=== PATIENT | female | born 1990 | race Two or more races ===

== ENCOUNTER 2025-01-02 13:00 | Outpatient (AMB) | payer MEDICAID, SELFPAY ==
[2025-01-02 13:20] VITALS: BP 107/64; PULSE 81; RESP 16; TEMP 36.6; O2SAT 98; BMI 36.6
--- NOTE | 2025-01-02 13:20 | AMB.OBINITIA ---
Vital Signs 01/02/25 13:20 Height 1.55 m Height Method Stated Weight 87.997 kg Weight Measurement Method Standing Scale BMI 36.6 BP 107/64 Blood Pressure Source Automatic Cuff Blood Pressure Location Left Upper Arm Position Sitting Respiration 16 Pulse 81 Pulse Source Monitor Temp 97.9 F Temp Source Oral Pulse Oximetry (%) 98 Oxygen Delivery Method Room Air Allergies/Home Meds Allergies & Medications Allergies No Known Drug Allergies Allergy (Unknown, Verified 11/23/21 01:20) Medication Reconciliation No Known Home Medications 01/02/25 [History Confirmed 01/02/25] Intake Visit Data Collection New Patient or Established: Established Patient (seen at [facility] within 3 years) Reason for Visit:: CARE Seen by Clinical Staff ONLY (RN/MA): No Caregiver Assisted Living Required: No Do You Feel Safe at Home: Yes Authorities Contacted: N/A PCP or OBGYN visit in last 3 months: Yes Hx Now: Yes Are you currently on any form of Control: No Last menstrual period: 06/11/24 Pain Present Currently: No Pain Scale Used: Vazquez-Kathleen/Numerical Pain scale:: 0 Smoking Status Smoking Status: 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 Questionnaires Covid-19 Vaccine Questionnaire Has patient been vacinated for Covid-19 Have you been vacinated for Covid-19: Yes PHQ-9 PHQ-2 Over the last 2 weeks, how often have you been bothered by any of the following problems? 1. Little interest or pleasure in doing things: not at all 2. Feeling down, depressed, or hopeless: not at all Total score: 0 PHQ-9 3. Trouble falling or staying asleep, or sleeping too much: Not at all 4. Feeling tired or having little energy: Not at all 5. Poor appetite or overeating: Not at all 6. Feeling bad about yourself - or that you are a failure or have let yourself or your family down: Not at all 7. Trouble concentrating on things, such as reading the newspaper or watching television: Not at all 8. Moving or speaking so slowly that other people could have noticed? - Or the opposite - being so fidgety or restless that you have been moving around a lot more than usual: not at all 9. Thoughts that you would be better off or of hurting yourself in some way: Not at all Total score: 0 Source: Developed by Drs. Sarmad Pandey, Nora Ding, Leo Wynn and colleagues, with an educational kentrell from [employer]. Depression screen completed yes Social History Living Situation History Marital Status: Lives With: Family Housing: House Tobacco History Smoking Status: 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 Second Hand Smoke Exposure: No Alcohol History Alcohol Intake: Never Domestic Abuse History Do You Feel Safe at Home: Yes Past Medical History Past Medical History Have you ever been diagnosed with any of the following: Neurological Problems Cerebrovascular Accident (CVA): No Transient Ischemic Attacks (TIA): No Dementia: No Alzheimer's Disease: No Seizures: No Migraine: Yes (has taken medication, no current rx) Cardiology Problems Myocardial Infarction: No Cardiac Arrhythmia: No Atrial Fibrillation: No Angina: No Heart Murmur: No Coronary Artery Disease: No Atherosclerotic Heart Disease: No Peripheral Vascular Disease: No Congestive Heart Failure: No Respiratory Problems Chronic Obstructive Pulmonary Disease (COPD): No Asthma: No (SON) Hx Cough: No Cough: No Wheezing: No Chest Deformities: No Smoking: No Stomache/Intestinal Problems Liver Cancer: No Hepatitis: No Cirrhosis: No Diverticulitis: No Diverticulosis: No Ulcer: No Genital/Urinary Problems Renal Disease: No Reproductive Problems Previous Pregnancies: Yes Musculoskeletal Problems Scoliosis: Yes Endocrine Problems Diabetes Mellitus Type 1: No Diabetes Mellitus Type 2: No Blood Problems Anemia: No Leukemia: No Hemophilia: No Thalassemia: No Other Problems Hospitalization: No Shingles: No Falls: No Blood Transfusions: No Blood Transfusion Reaction: No Anesthesia Reactions: No MRSA: No Measles: Yes Cancer: No History of Present Illness HPI Narrative This is a 34-year-old 4 para 3 that comes to OB clinic for her first visit. Patient is a transfer from [facility]. First visit at [facility] was at 8 weeks. First OB sono was at 13 weeks. Last period June 11, 2024. This gives EDC of 03/18/2025. Patient is A+, antibody screen negative, RPR nonreactive, rubella immune, hepatitis B negative, HIV negative, hep C negative, GC and Chlamydia were negative. Patient's NIPT was negative. AFP and screens were negative. Patient had her 1 hour Glucola done and that was 139. And hemoglobin A1c was 5.4. Hematocrit normal range. Patient's next OB sono with maternal- medicine is January 16. Patient reports movement. Denies signs and symptoms of labor. No OB complaints today. OB Initial Visit Menstrual History Menstrual reliability: definite Flow: normal Menstrual regularity: regular Monthly: Yes Age at menarche: 11 On control pills at conception: No OB History : 4 Para: 3 Hx # Pregnancies: 0 Hx Total # of Abortions (Spontaneous & Elective): 0 # of Living Children: 3 Delivery History 1st : Child's name: MARLI date: 05/01/10 sex: female Gestational age at delivery (weeks): 39 Delivery type: vaginal Delivery complications: NONE History of depression before or after : No 2nd : Child's name: MONIKA date: 11/25/12 sex: male Gestational age at delivery (weeks): 39 Delivery type: vaginal Delivery complications: NONE History of depression before or after : No 3rd : Child's name: RADHA date: 08/25/15 sex: male Gestational age at delivery (weeks): 40 Delivery type: vaginal Delivery complications: NONE History of depression before or after : No Infection History & Risk Evaluation History of STDs: chlamydia HIV risk evaluation: low risk Hepatitis B risk evaluation: low risk Patient or partner has history of Genital Herpes: No Genetic Screening & History Genetic Screening/Teratology Counseling - Includes patient, baby's father, or anyone in either family with: 1. Patient's age 35 years or older as of estimated date of delivery: Yes 2. Thalassemia (Macedonian, Cook Islander, Mediterranean, or Background); MCV less than 80: No 3. Neural Tube Defect (Meningomyelocele, Spina Bifida, or Anencephaly): No 4. Congenital Heart Defect: No 5. Down Syndrome: No 6. Saleem-Sachs (Ashkenazi Adventism, Cajun, Czech Barron): No 7. Milagros Disease (Ashkenazi Adventism): No 8. Familial Dysautonomia (Ashkenazi Adventism): No 9. Sickle Cell Disease or Trait (): No 10. Hemophilia or other blood disorders: No 11. Muscular Dystrophy: No 12. Cystic Fibrosis: No 13. [place]'s Chorea: No 14. Mental Retardation/Autism: No 15. Other inherited genetic or chromosomal disorder: No 16. Maternal Metabolic Disorder (EG,TYPE 1 Diabetes, PKU): No 17. Patient or baby's father had a child with defects not listed above: No 18. Recurrent loss or a stillbirth: No 19. Medications (including supplements, vitamins, herbs or otc drugs)/illicit/recreational drugs/alcohol since last menstrual period: Yes If Yes, agent(s) and strength/dosage: prenatals 1 daily 20. Any other: No Infection History 1. Live with someone with TB or exposed to TB: No 2. Rash or viral illness since last menstrual period: No 3. Hepatitis B,C: No 4. History of STD: chlamydia Other (see comments) Source: [employer] OB Flowsheet OB Flowsheet Initial Weight: Not Recorded Date <del>?</del> EGA Weight Edema CTX Effacement BP Fundal ht Pres Dilation Effacement Station Visit Note Alb Glu FHR Mov 01/02/25 <del>?</del> 29w 2d 87.997 kg absent absent 107/64 29 34-year-old multipara for OB check and OB transfer of care. Patient reports good movement. Denies cramping or signs of labor. Follow-up maternal- medicine is January 16, 2025. Tdap vaccine IM will be given today. And follow-up in 3 weeks. 135 active Review of Systems Review of Systems Systems Reviewed: All systems reviewed, normal except as documented Exam General Limitations: no limitations General Appearance: alert, in no apparent distress, comfortable, cooperative, healthy appearing, well developed and well groomed Head Head exam: atraumatic, normocephalic and normal inspection Neck Neck exam: Present normal inspection, full ROM and trachea midline Chest Chest inspection: Present normal inspection and symmetric chest wall rise Resp Respiratory exam: Present normal lung sounds bilaterally Card Cardiovascular exam: Present regular rate, normal rhythm and normal heart sounds Abdominal Abdominal exam: Present soft (gravid abdomen, FH: 29. FHT 134) and normal bowel sounds Psych Psychiatric exam: Present normal affect and normal mood Results Objective Laboratory: HA1c:5.4 1hr gtt:134 rpr: NR HCT: 35/11.4 platelets:302 Assessment & Plan Diagnosis / Problem List (1) Supervision of elderly multigravida, third trimester: Status: Acute (2) Encounter for supervision of other normal , third trimester: Status: Acute Plan TDAP today, f/u with mfm as scheduled 01/16, PTL precaution reviewed, continue PNV, increase fluid, comfort measure for swelling, avoid excess salt. f/u 3 week Additional Plan Follow Up: 3 Weeks Office Procedures OB Clinic LOC & Office Proc's Nursing/Assessment Patient Status: Established Patient OB Clinic Nursing Assessment: Medication Reconciliation, Update PMH in EMR and Vital Signs OB Clinic Coordination of Care: Complex Care and Chronic Disease 1-5, Consent,records obtained, informed consent, Education Simp Pt/Fam, Results/Orders obtained and Staff clarify orders Special Needs: Heart tones Established Patient Charge Established Patient Point Assignment: 120 Established Patient Point Charge: EP Level 4 (120-155) Injection/Vaccine Admin SQ Im Injection: Yes Immunizations Adacel(Tdap Adolesn/Adult)(PF) 2 Lf-(2.5-5-3-5)-5 Lf/0.5 mL IM syringe Performing Provider: Jackeline Winston CNM Performing Location: [facility] Administered by: Melania Linton MA on 01/02/25 13:45 Dose Route Admin Location Dispensed Lot Number Expiration Date [facility] 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
== END 2025-01-02 13:54 | disposition home or self-care (01) ==
LOC: HODSOBC 13:00
PROVIDERS: PCP Advanced Practice Midwife; Referring Provider Advanced Practice Midwife; Supervising Provider Advanced Practice Midwife; Visit Provider Advanced Practice Midwife
DX: O09.523 Supervision of elderly multigravida, third trimester (principal); Z3A.29 29 weeks gestation of pregnancy; Z23 Encounter for immunization
CPT/HCPCS: 90471; 90715; 96372; 99214; G0463

== ENCOUNTER 2025-02-06 09:05 | Outpatient (AMB) | payer MEDICAID, SELFPAY ==
--- NOTE | 2025-02-06 09:09 | OBCLNT_ITS ---
Vital Signs 02/06/25 09:17 Height 1.55 m Height Method Stated Weight 86.409 kg Weight Measurement Method Standing Scale BMI 35.9 BP 107/66 Blood Pressure Source Automatic Cuff Blood Pressure Location Right Upper Arm Position Sitting Respiration 14 Pulse 70 Pulse Source Monitor Temp 97.7 F Temp Source Oral Pulse Oximetry (%) 98 Oxygen Delivery Method Room Air Allergies/Home Meds Allergies & Medications Allergies No Known Drug Allergies Allergy (Unknown, Verified 02/06/25 09:18) Medication Reconciliation No Known Home Medications 01/02/25 [History Confirmed 02/06/25] Intake Visit Data Collection New Patient or Established: Established Patient (seen at [facility] within 3 years) Reason for Visit:: CARE Seen by Clinical Staff ONLY (RN/MA): No Animal Eviscerator Required: No Do You Feel Safe at Home: Yes Authorities Contacted: N/A PCP or OBGYN visit in last 3 months: Yes Hx Now: Yes Are you currently on any form of Control: No Pain Present Currently: No Pain Scale Used: Vazquez-Kathleen/Numerical Pain scale:: 0 Smoking Status Smoking Status: 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 Questionnaires Covid-19 Vaccine Questionnaire Has patient been vacinated for Covid-19 Have you been vacinated for Covid-19: Yes PHQ-9 PHQ-2 Over the last 2 weeks, how often have you been bothered by any of the following problems? 1. Little interest or pleasure in doing things: not at all 2. Feeling down, depressed, or hopeless: not at all Total score: 0 PHQ-9 3. Trouble falling or staying asleep, or sleeping too much: Not at all 4. Feeling tired or having little energy: Not at all 5. Poor appetite or overeating: Not at all 6. Feeling bad about yourself - or that you are a failure or have let yourself or your family down: Not at all 7. Trouble concentrating on things, such as reading the newspaper or watching t elevision: Not at all 8. Moving or speaking so slowly that other people could have noticed? - Or the opposite - being so fidgety or restless that you have been moving around a lot more than usual: not at all 9. Thoughts that you would be better off or of hurting yourself in some way: Not at all Total score: 0 Source: Developed by Drs. Sarmad Pandey, Nora Ding, Leo Wynn and colleagues, with an educational kentrell from [employer]. 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: Past Medical History Past Medical History: Yes Hx Neurological Disorders, No Hx Cardiac Disorders, No Hx Cancer, No Hx Blood Disorders, No Hx Anemia, No Hx Gastrointestinal Disorders, No Hx Renal Disease, No Hx Diabetes Mellitus Type 1 and No Hx Diabetes Mellitus Type 2 Care OB Visit Log OB Flowsheet Initial Weight: Not Recorded Date -?-?-?-?-?-?-?-?-?-?-?-?- EGA Weight Edema CTX Effacement BP Fundal ht Pres Dilation Effacement Station Visit Note Alb Glu FHR Mov 01/02/25 -?-?-?-?-?-?-?-?-?-?-?-?- 29w 2d 87.997 kg absent absent 107/64 29 34-year-old multipara for OB check and OB transfer of care. Patient reports good movement. Denies cramping or signs of labor. Follow-up maternal- medicine is January 16, 2025. Tdap vaccine IM will be given today. And follow-up in 3 weeks. 135 active 02/06/25 -?-?-?-?-?-?-?-?-?-?-?-?- 34w 2d 86.409 kg absent absent 107/66 34 cephalic fetus active. complains of sciatic pain and leg cramps, feactive,no PTL complaints. comfort measure for leg cramps and sciatic pain, continue PNV, fkc bid, GBS NV. RTC 1 week 143 active ROX Calculator Estimated Delivery Date Method Current WG Current Estimate 03/18/25 LMP (Certain) 34w 2d Other Estimates 03/23/25 Ultrasound #1 33w 4d Notes Visit Date: 02/06/25 Last Updated by: Jackeline Winston CNM 34 yo , lmp 06/11/24. EDC 03/18/25. A+,abs-,rpr;;nr, rub imm, hbsag-,hiv-,GC/CT-, A1c:5.4, 1 hr gtt wnl. EFX+W 71%, biggest babe:9lb Office Procedures OB Clinic LOC & Office Proc's Nursing/Assessment Patient Status: Established Patient OB Clinic Nursing Assessment: Medication Reconciliation, Update PMH in EMR and Vital Signs OB Clinic Coordination of Care: AMA, Complex Care and Chronic Disease 1-5, Consent,records obtained, informed consent, Education Simp Pt/Fam, Lab and Imaging orders, Results/Orders obtained and [facility] Special Needs: Heart tones Miscellaneous Interventions: Blood/Urine Collection Established Patient Charge Established Patient Point Assignment: 185 Established Patient Point Charge: EP Level 5 (160-above) Assessment & Plan Diagnosis / Problem List (1) Encounter for supervision of other normal , third trimester: Status: Acute Plan PTL precaution, fkc bid, continue pnf, discuss diet and weight, comfort measure for sciatic and leg cramps. RTC 1 week, gbs Additional Plan Follow Up: 1 Week (obc)
[2025-02-06 09:17] VITALS: BP 107/66; PULSE 70; RESP 14; TEMP 36.5; O2SAT 98; BMI 35.9
[2025-02-06 11:27] LABS: Bilirubin,Urine Clinitek Negative (Negative); Blood,Urine Clinitek Negative (Negative); Glucose, Urine Clinitek Negative (Negative); Ketones,Urine Clinitek Negative (Negative); Leukocyte Esterase,Urine Clin Negative (Negative); Nitrite,Urine Clinitek Negative (Negative); PH,Urine Clinitek 6.5 (5.0-7.0); Protein,Urine Clinitek 1+ (Neg - Trace); Specific Gravity,Urine Clin 1.025 (1.001-1.030); Urobilinogen,Urine Clinitek 0.2 mg/dL (0.0-1.0)
== END 2025-02-06 10:01 | disposition home or self-care (01) ==
LOC: HODSOBC 09:05
PROVIDERS: Supervising Provider Advanced Practice Midwife; Visit Provider Advanced Practice Midwife
DX: O09.523 Supervision of elderly multigravida, third trimester (principal); O09.893 Supervision of other high risk pregnancies, third trimester; Z3A.34 34 weeks gestation of pregnancy; M54.30 Sciatica, unspecified side; O99.891 Other specified diseases and conditions complicating pregnancy
CPT/HCPCS: 81001; 99215; G0463

== ENCOUNTER 2025-02-13 08:37 | Outpatient (AMB) | payer MEDICAID, SELFPAY ==
[2025-02-13 08:39] VITALS: BP 116/70; PULSE 90; RESP 18; TEMP 36.3; O2SAT 97; BMI 36.8
--- NOTE | 2025-02-13 08:39 | OBCLNT_ITS ---
Vital Signs 02/13/25 08:39 Height 1.55 m Height Method Stated Weight 88.621 kg Weight Measurement Method Standing Scale BMI 36.8 BP 116/70 Blood Pressure Source Automatic Cuff Blood Pressure Location Right Upper Arm Position Sitting Respiration 18 Pulse 90 Pulse Source Monitor Temp 97.4 F Temp Source Oral Pulse Oximetry (%) 97 Oxygen Delivery Method Room Air Allergies/Home Meds Allergies & Medications Allergies No Known Drug Allergies Allergy (Unknown, Verified 02/13/25 08:40) Medication Reconciliation No Known Home Medications 01/02/25 [History Confirmed 02/13/25] Intake Visit Data Collection New Patient or Established: Established Patient (seen at [facility] within 3 years) Reason for Visit:: CARE Seen by Clinical Staff ONLY (RN/MA): No Combustion Engineer Required: No Do You Feel Safe at Home: Yes Authorities Contacted: N/A PCP or OBGYN visit in last 3 months: Yes Hx Now: Yes Are you currently on any form of Control: No Pain Present Currently: No Pain Scale Used: Vazquez-Kathleen/Numerical Pain scale:: 0 Smoking Status Smoking Status: 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 Questionnaires Covid-19 Vaccine Questionnaire Has patient been vacinated for Covid-19 Have you been vacinated for Covid-19: No PHQ-9 PHQ-2 Over the last 2 weeks, how often have you been bothered by any of the following problems? 1. Little interest or pleasure in doing things: not at all 2. Feeling down, depressed, or hopeless: not at all Total score: 0 PHQ-9 3. Trouble falling or staying asleep, or sleeping too much: Not at all 4. Feeling tired or having little energy: Not at all 5. Poor appetite or overeating: Not at all 6. Feeling bad about yourself - or that you are a failure or have let yourself or your family down: Not at all 7. Trouble concentrating on things, such as reading the newspaper or watching te levision: Not at all 8. Moving or speaking so slowly that other people could have noticed? - Or the opposite - being so fidgety or restless that you have been moving around a lot more than usual: not at all 9. Thoughts that you would be better off or of hurting yourself in some way: Not at all Total score: 0 Source: Developed by Drs. Sarmad Pandey, Nora Ding, Leo Wynn and colleagues, with an educational kentrell from [employer]. 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 Patient reports good movement. Denies cramping or signs of labor. Follow-up maternal- medicine is January 16, 2025. Tdap vaccine IM will be given today. And follow-up in 3 weeks. 135 active 02/06/25 -?-?-?-?-?-?-?-?-?-?-?-?- 34w 2d 86.409 kg absent absent 107/66 34 cephalic fetus active. complains of sciatic pain and leg cramps, feactive,no PTL complaints. comfort measure for leg cramps and sciatic pain, continue PNV, fkc bid, GBS NV. RTC 1 week 143 active 02/13/25 -?-?-?-?-?-?-?-?-?-?-?-?- 35w 2d 88.621 kg absent absent 116/70 cephalic fetus active, no complaints of labor. denies leaking or bleeding, fetus active, discuss FKC, review laror precaution, GBS today. rtc 1 week 156 active ROX Calculator Estimated Delivery Date Method Current WG Current Estimate 03/18/25 LMP (Certain) 35w 2d Other Estimates 03/23/25 Ultrasound #1 34w 4d Notes Visit Date: 02/06/25 Last Updated by: Jackeline Winston CNM 34 yo , lmp 06/11/24. EDC 03/18/25. A+,abs-,rpr;;nr, rub imm, hbsag-,hiv-,GC/CT-, A1c:5.4, 1 hr gtt wnl. EFX+W 71%, biggest babe:9lb Office Procedures OB Clinic LOC & Office Proc's Nursing/Assessment Patient Status: Established Patient OB Clinic Nursing Assessment: Medication Reconciliation, Update PMH in EMR and Vital Signs OB Clinic Coordination of Care: Complex Care and Chronic Disease 1-5, Consent,records obtained, informed consent, Education Simp Pt/Fam, Lab and Imaging orders, Results/Orders obtained and Staff clarify orders Special Needs: Heart tones Established Patient Charge Established Patient Point Assignment: 135 Established Patient Point Charge: EP Level 4 (120-155) Assessment & Plan Diagnosis / Problem List (1) Encounter for supervision of other normal , third trimester: Status: Acute Plan GBS today, discuss labor precaution, fkc bid, continue PNV, increase fluids. RTC 1 week obc Additional Plan Follow Up: 1 Week (obc)
== END 2025-02-13 09:02 | disposition home or self-care (01) ==
LOC: HODSOBC 08:37
PROVIDERS: PCP Advanced Practice Midwife; Referring Provider Advanced Practice Midwife; Supervising Provider Advanced Practice Midwife; Visit Provider Advanced Practice Midwife
DX: O09.523 Supervision of elderly multigravida, third trimester (principal); Z3A.35 35 weeks gestation of pregnancy
CPT/HCPCS: 81001; 99214; G0463

== ENCOUNTER 2025-02-20 08:20 | Outpatient (AMB) | payer MEDICAID, SELFPAY ==
[2025-02-20 08:27] VITALS: BP 106/70; PULSE 80; RESP 15; TEMP 36.3; O2SAT 98; BMI 37.0
--- NOTE | 2025-02-20 08:27 | OBCLNT_ITS ---
Vital Signs 02/20/25 08:27 Height 1.55 m Height Method Stated Weight 89.074 kg Weight Measurement Method Standing Scale BMI 37.0 BP 106/70 Blood Pressure Source Automatic Cuff Blood Pressure Location Left Upper Arm Position Sitting Respiration 15 Pulse 80 Pulse Source Monitor Temp 97.4 F Temp Source Oral Pulse Oximetry (%) 98 Oxygen Delivery Method Room Air Allergies/Home Meds Allergies & Medications Allergies No Known Drug Allergies Allergy (Unknown, Verified 02/20/25 08:28) Medication Reconciliation No Known Home Medications 01/02/25 [History Confirmed 02/20/25] Intake Visit Data Collection New Patient or Established: Established Patient (seen at [facility] within 3 years) Reason for Visit:: PREATAL CARE Seen by Clinical Staff ONLY (RN/MA): No Yard Engineer Required: No Do You Feel Safe at Home: Yes Authorities Contacted: N/A PCP or OBGYN visit in last 3 months: Yes Hx Now: Yes Are you currently on any form of Control: No Pain Present Currently: No Pain Scale Used: Vazquez-Kathleen/Numerical Pain scale:: 0 Smoking Status Smoking Status: 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 Questionnaires Covid-19 Vaccine Questionnaire Has patient been vacinated for Covid-19 Have you been vacinated for Covid-19: Yes PHQ-9 PHQ-2 Over the last 2 weeks, how often have you been bothered by any of the following problems? 1. Little interest or pleasure in doing things: not at all 2. Feeling down, depressed, or hopeless: not at all Total score: 0 PHQ-9 3. Trouble falling or staying asleep, or sleeping too much: Not at all 4. Feeling tired or having little energy: Not at all 5. Poor appetite or overeating: Not at all 6. Feeling bad about yourself - or that you are a failure or have let yourself or your family down: Not at all 7. Trouble concentrating on things, such as reading the newspaper or watching television: Not at all 8. Moving or speaking so slowly that other people could have noticed? - Or the opposite - being so fidgety or restless that you have been moving around a lot more than usual: not at all 9. Thoughts that you would be better off or of hurting yourself in some way: Not at all Total score: 0 Source: Developed by Drs. Sarmad Pandey, Nora Ding, Leo Wynn and colleagues, with an educational kentrell from [employer]. 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 Patient reports good movement. Denies cramping or signs of labor. Follow-up maternal- medicine is January 16, 2025. Tdap vaccine IM will be given today. And follow-up in 3 weeks. 02/06/25 -?-?-?-?-?-?-?-?-?-?-?-?- 34w 2d 86.409 kg 107/66 absent cephalic 34 143 active fetus active. complains of sciatic pain and leg cramps, feactive,no PTL complaints. comfort measure for leg cramps and sciatic pain, continue PNV, fkc bid, GBS NV. RTC 1 week 02/13/25 -?-?-?-?-?-?-?-?-?-?-?-?- 35w 2d 88.621 kg 116/70 absent cephalic 156 active fetus active, no complaints of labor. denies leaking or bleeding, fetus active, discuss FKC, review laror precaution, GBS today. rtc 1 week 02/20/25 -?-?-?-?-?-?-?-?-?-?-?-?- 36w 2d 89.074 kg 106/70 occasional cephalic 36 157 active denies leaking,bleeding. reports good FM fetus active, labor precaution, fkc bid. hydrate, rtc 1 week ROX Calculator Estimated Delivery Date Method Current WG Current Estimate 03/18/25 LMP (Certain) 36w 2d Other Estimates 03/23/25 Ultrasound #1 35w 4d Notes Visit Date: 02/06/25 Last Updated by: Jackeline Winston, DORIE 34 yo , lmp 06/11/24. EDC 03/18/25. A+,abs-,rpr;;nr, rub imm, hbsag-,hiv-,GC/CT-, A1c:5.4, 1 hr gtt wnl. EFX+W 71%, biggest babe:9lb Office Procedures OB Clinic LOC & Office Proc's Nursing/Assessment Patient Status: Established Patient OB Clinic Nursing Assessment: Medication Reconciliation, Update PMH in EMR and Vital Signs OB Clinic Coordination of Care: Complex Care and Chronic Disease 1-5, Cons ent,records obtained, informed consent, Education Simp Pt/Fam, Lab and Imaging orders and Staff clarify orders Special Needs: Heart tones Established Patient Charge Established Patient Point Assignment: 130 Established Patient Point Charge: EP Level 4 (120-155) Assessment & Plan Diagnosis / Problem List (1) Supervision of elderly multigravida, third trimester: Status: Acute Plan discuss labor precaution, fkc bid. increase fluid. discuss danger s/s and ER precaution. rtc 1 week Additional Plan Follow Up: 1 Week (obc)
== END 2025-02-20 08:58 | disposition home or self-care (01) ==
LOC: HODSOBC 08:20
PROVIDERS: Supervising Provider Advanced Practice Midwife; Visit Provider Advanced Practice Midwife
DX: O09.523 Supervision of elderly multigravida, third trimester (principal); Z3A.36 36 weeks gestation of pregnancy
CPT/HCPCS: 99214; G0463

== ENCOUNTER 2025-02-27 09:00 | Outpatient (AMB) | payer MEDICAID, SELFPAY ==
[2025-02-27 09:29] VITALS: BP 116/69; PULSE 82; RESP 18; TEMP 36.2; O2SAT 99; BMI 37.6
--- NOTE | 2025-02-27 09:29 | OBCLNT_ITS ---
Vital Signs 02/27/25 09:29 Height 1.55 m Height Method Stated Weight 90.378 kg Weight Measurement Method Standing Scale BMI 37.6 BP 116/69 Blood Pressure Source Automatic Cuff Blood Pressure Location Left Upper Arm Position Sitting Respiration 18 Pulse 82 Pulse Source Monitor Temp 97.2 F Temp Source Oral Pulse Oximetry (%) 99 Oxygen Delivery Method Room Air Allergies/Home Meds Allergies & Medications Allergies No Known Drug Allergies Allergy (Unknown, Verified 02/20/25 08:28) Medication Reconciliation No Known Home Medications 01/02/25 [History Confirmed 02/27/25] Intake Visit Data Collection New Patient or Established: Established Patient (seen at [facility] within 3 years) Reason for Visit:: OBC Seen by Clinical Staff ONLY (RN/MA): No Domestic Cleaner Required: No Do You Feel Safe at Home: Yes Authorities Contacted: N/A PCP or OBGYN visit in last 3 months: Yes Date of Last PCP or OBGYN visit: 02/20/25 Hx Now: Yes Are you currently on any form of Control: No Pain Present Currently: No Pain Scale Used: Vazquez-Kathleen/Numerical Pain scale:: 0 Smoking Status Smoking Status: 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 Questionnaires Covid-19 Vaccine Questionnaire Has patient been vacinated for Covid-19 Have you been vacinated for Covid-19: Yes PHQ-9 PHQ-2 Over the last 2 weeks, how often have you been bothered by any of the following problems? 1. Little interest or pleasure in doing things: not at all 2. Feeling down, depressed, or hopeless: not at all Total score: 0 PHQ-9 3. Trouble falling or staying asleep, or sleeping too much: Not at all 4. Feeling tired or having little energy: Not at all 5. Poor appetite or overeating: Not at all 6. Feeling bad about yourself - or that you are a failure or have let yourself or your family down: Not at all 7. Trouble concentrating on things, such as reading the newspaper or watching television: Not at all 8. Moving or speaking so slowly that other people could have noticed? - Or the opposite - being so fidgety or restless that you have been moving around a lot more than usual: not at all 9. Thoughts that you would be better off or of hurting yourself in some way: Not at all Total score: 0 If you checked off any problems, how difficult have these problems made it for you to do your work, take care of things at home, or get along with other people?: not difficult at all Source: Developed by Drs. Sarmad Pandey, Nora Ding, Leo Wynn and colleagues, with an educational kentrell from [employer]. 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 Patient reports good movement. Denies cramping or signs of labor. Follow-up maternal- medicine is January 16, 2025. Tdap vaccine IM will be given today. And follow-up in 3 weeks. 02/06/25 -?-?-?-?-?-?-?-?-?-?-?-?- 34w 2d 86.409 kg 107/66 absent cephalic 34 143 active fetus active. complains of sciatic pain and leg cramps, feactive,no PTL complaints. comfort measure for leg cramps and sciatic pain, continue PNV, fkc bid, GBS NV. RTC 1 week 02/13/25 -?-?-?-?-?-?-?-?-?-?-?-?- 35w 2d 88.621 kg 116/70 absent cephalic 156 active fetus active, no complaints of labor. denies leaking or bleeding, fetus active, discuss FKC, review laror precaution, GBS today. rtc 1 week 02/20/25 -?-?-?-?-?-?-?-?-?-?-?-?- 36w 2d 89.074 kg 106/70 occasional cephalic 36 157 active denies leaking,bleeding. reports good FM fetus active, labor precaution, fkc bid. hydrate, rtc 1 week 02/27/25 -?-?-?-?-?-?-?-?-?-?-?-?- 37w 2d 90.378 kg 116/69 occasional cephalic 37 156 active fetus active. increased pressure, no LOF or bleeding, no other complaints discuss labor precaution, reviewed FKC bid, discuss danger precaution, continue PNV, Hydrate. rtc 1 week obc ROX Calculator Estimated Delivery Date Method Current WG Current Estimate 03/18/25 LMP (Certain) 37w 2d Other Estimates 03/23/25 Ultrasound #1 36w 4d Notes Visit Date: 02/27/25 Last Updated by: Jackeline Winston CNM GBS- Visit Date: 02/06/25 Last Updated by: Jackeline Winston CNM 34 yo , lmp 06/11/24. EDC 03/18/25. A+,abs-,rpr;;nr, rub imm, hbsag-,hiv-,GC/CT-, A1c:5.4, 1 hr gtt wnl. EFX+W 71%, biggest babe:9lb Office Procedures OB Clinic LOC & Office Proc's Nursing/Assessment Patient Status: Established Patient OB Clinic Nursing Assessment: Medication Reconciliation, Update PMH in EMR and Vital Signs OB Clinic Coordination of Care: Education Complex Pt/Fam, Consent,records obtained, informed consent, Lab and Imaging orders, Results/Orders obtained and Staff clarify orders Special Needs: Heart tones Established Patient Charge Established Patient Point Assignment: 115 Established Patient Point Charge: EP Level 3 (80-115) Assessment & Plan Diagnosis / Problem List (1) Encounter for supervision of other normal , third trimester: Status: Acute (2) Supervision of elderly multigravida, third trimester: Status: Acute Plan discuss labor precaution, fkc bid reviewed, discuss ER precaution. continue pnv, hydrate. rtc 1 week Additional Plan Follow Up: 1 Week (obc)
== END 2025-02-27 09:49 | disposition home or self-care (01) ==
LOC: HODSOBC 09:00
PROVIDERS: Supervising Provider Obstetrics & Gynecology; Visit Provider Advanced Practice Midwife
DX: O09.523 Supervision of elderly multigravida, third trimester (principal); Z3A.37 37 weeks gestation of pregnancy
CPT/HCPCS: 99213; G0463

== ENCOUNTER 2025-03-07 00:09 | Inpatient (IN) | payer MEDICAID, SELFPAY ==
[2025-03-07] VITALS (143 sets, daily range): BP systolic 102–168; BP diastolic 51–80; PULSE 66–104; RESP 14–99; TEMP 36.5–37.7; O2SAT 92–100; BMI 36.3
[2025-03-07] MEDS: RINGERS LACTATED 1000 ML 1,000 ML 999 ML IV (01:02)
[2025-03-07 01:11] LABS: Basophils # (Auto) 0.1 Thou/mm3 (0.0-0.2); Basophils % (Auto) 1 % (0-2.5); Eosinophils # (Auto) 0.2 Thou/mm3 (0.0-0.5); Eosinophils % (Auto) 2 % (0-10); Hematocrit 34.4 % (36.0-46.0); Immature Granulocytes % (Auto) 1 % (0-0); Immature Granulocytes Auto 0.05 Thou/mm3 (0.00-0.00); Lymphocytes # (Auto) 2.4 Thou/mm3 (1.0-4.8); Lymphocytes % (Auto) 24 % (10-50); Mean Corpuscular HGB Conc 34.9 g/dl (31.0-37.0); Mean Corpuscular Hemoglobin 28.9 pg (25.0-35.0); Mean Corpuscular Volume 83 fL (80-100); Monocytes # (Auto) 0.7 Thou/mm3 (0.0-0.8); Monocytes % (Auto) 7 % (0-12); Neutrophils # (Auto) 6.4 Thou/mm3 (1.8-7.7); Neutrophils % (Auto) 66 % (37-80); Nucleated Red Blood Cell % 0 /100 WBC (0); Platelet Count 248 Thou/mm3 (140-440); Red Blood Count 4.15 Miln/mm3 (4.00-5.20); White Blood Count 9.8 Thou/mm3 (3.6-11.0)
[2025-03-07] MEDS: OXYTOCIN INJ 10 UNIT/ML VIAL IM (07:11)
[2025-03-07] MEDS: OXYTOCIN in NS 20 units 20 UNIT/1,000 ML BAG 125 UNIT IV (07:16)
[2025-03-07] MEDS: MISOPROSTOL 200 mCg TABLET 800 MCG PR (07:16)
[2025-03-07] MEDS: TRANEXAMIC ACID 1,000 MG IVPB 1,000 MG/100 ML BAG 200 MG IV (07:36)
--- NOTE | 2025-03-07 07:54 | ESHP_ITS ---
Documentation for date of: 03/07/25 OB Labor/Induct. HPI History of Present Illness Chief complaint: labor : 4 Para: 3 Term pregnancies: 3 pregnancies: 0 Living children: 3 History of Abortions: Spontaneous and Elective: 0 History of Vaginal deliveries: 3 History of sections: No History of : No Date of last menstrual period: 06/11/24 ROX: 03/18/25 Gestational Age (weeks): 38 Gestational Age (days): 3 Gestational age based on last menstrual period: 38 History of present illness: This is a 35-year-old 4 para 3 admit to labor and delivery with complaints of contractions since 11 PM. Denies leaking or bleeding. Reports good movement. Patient been followed both at [facility] for care and then she transferred to [facility] medical clinic OB. Last. Was June 11, 2024. Estimated due date March 18, 2025. First ultrasound was in August patient was 13 weeks and that confirmed dates and then she has had several other anatomy scans that showed normal growth and normal anatomy. Patient also had a MF appointment as well. Denies social habits. Denies surgery. Denies chronic illness. First visit at [facility] was at 8 weeks. Patient is A+, antibody screen negative, RPR nonreactive, rubella immune, hepatitis B negative, hep C negative, HIV negative, GC and Chlamydia were negative. GBS negative. Third trimester labs negative. History of Present Dating criteria: LMP confirmed by 1st trimester US Adequate Care: Yes Ultrasounds: normal 1st trimester US and normal mid trimester US Obstetrical complications: none Medical complications: none Labs Labs: Positive: Rubella Titre, Negative: RPR, Hepatitis B, HIV, Chlamydia, Gonorrhea and Group Beta Strep and Unknown: Herpes Type 1, Herpes Type 2 and Covid-19 Review of Systems Review of Systems Systems Reviewed: All systems reviewed, normal except as documented Past Medical History Surgical History SURGICAL: Negative Section Meds Home Medications and Allergies Home Medications ?Medication ?Instructions ?Recorded ?Confirmed ?Type vit no.95-ferrous 1 tab PO QDAY 03/07/2502/25 History fumarate 28 mg-folic acid 800 mcg tablet () Allergies Allergy/AdvReac Type Severity Reaction Status Date / Time No Known Drug Allergies Allergy Unknown Verified 03/07/25 01:28 OB Exam Physical Exam Vital signs: Temp Pulse Resp BP Pulse Ox 97.9 F 88 18 117/62 98 03/07/25 06:00 03/07/25 07:47 03/07/25 06:00 03/07/25 07:47 03/07/25 07:53 Narrative: Alert and oriented. Vital signs stable afebrile. Gravid abdomen. Gynecoid pelvis. Estimated weight 7-1/2 pounds. Vaginal exam on admission was 80%, 5, -2. Vertex. Bag water intact. heart category 1 with accelerations and moderate variability and contractions about every 3 to 4 minutes Detailed Labor and Delivery Exam Dilation (cm): 5 Effacement (%): 80 Cervix position: mid station: -2 Consistency: soft Presentation: Vertex Cervical ripeness score: 80 Membranes: intact Baseline heart rate: 145 monitor accelerations: 15x15 monitor decelerations: None retirement variability: Moderate (11-25) Contraction frequency (min): 3-4 Contraction duration (sec): 40 Tachysystole: No Contraction intensity: Moderate OB Results Labs 03/07/25 00:50 Labs: Short CBC 03/07/25 Range/Units 00:50 WBC 9.8 (3.6-11.0) Thou/mm3 Hgb 12.0 (12.0-16.0) g/dL Hct 34.4 L (36.0-46.0) % Plt Count 248 (140-440) Thou/mm3 OB Assessment & Plan Additional Plan Induction method: none Plan: anticipate NVD and consult MD streeter
--- NOTE | 2025-03-07 07:58 | PD.LDDELS ---
Data (Rojas) Data Hx Section: No : 4 Term: 3 : 0 Livin Abortions: Spontaneous & Theraputic: 0 Delivery Data (Rojas) Labor Data Initiation of labor: Spontaneous Induction/Augmentation Agent: None ROM date: 03/07/25 ROM time: 07:03 Amniotic membrane rupture type: Artificial Amniotic fluid description: Clear Delivery Data EDC: 03/18/25 EDC calculated by:: LMP/early US confirmation Date of arrival to unit: 03/07/25 Time of arrival to unit: 00:09 Onset of labor date: 03/06/25 Onset of labor time: 23:00 Complete dilation date: 03/07/25 Complete dilation time: 07:03 delivery date: 03/07/25 delivery time: 07:10 Gestational age (weeks): 38 Gestational age (days): 4 Placenta delivery date: 03/07/25 Placenta delivery time: 07:16 Stage 1 total time: Labor - Stage 1 Duration 8 hours and 3 minutes Delivered by: Jackeline Winston Delivery nurse: Xochitl Jung nurse: Armida MACKEY In Home Sales Representative at delivery: No Support person(s) at delivery: FOB Delivery Method Delivery method: Normal Vaginal Delivery Presentation: Vertex position: OA Anesthesia Type Anesthesia Type: Epidural Delivery Room Medications Delivery room medications: Pitocin 10 u IM, Pitocin 20 u IV, Cytotec [address] and other (TXA x1) Placenta Placenta delivery description: Spontaneous (inspected placenta, intact) Cord blood sent to lab: Yes cord blood collection: Cord Blood Type Episiotomy Episiotomy description: None (no laceration) Perineal repair Sutures used for repair: 3.0 Vicryl EBL Estimated blood loss (ml): 400 Umbilical Cord cord description: 3 Vessels Data (Rojas) Castor Data order: 1 Castor's gender: Male Identification band number: [id number] weight (gms): 3570 g Weight (pounds): 7 lbs and 13.9 ozs 1 minute: 9 5 minutes: 9
[2025-03-07] MEDS: IBUPROFEN TAB 400 MG TABLET 800 MG PO (08:56)
[2025-03-07 15:33] LABS: Basophils % (Auto) 0 % (0-2.5); Eosinophils # (Auto) 0.1 Thou/mm3 (0.0-0.5); Eosinophils % (Auto) 1 % (0-10); Hematocrit 34.6 % (36.0-46.0); Hemoglobin 11.7 g/dL (12.0-16.0); Immature Granulocytes % (Auto) 1 % (0-0); Immature Granulocytes Auto 0.07 Thou/mm3 (0.00-0.00); Lymphocytes # (Auto) 1.9 Thou/mm3 (1.0-4.8); Lymphocytes % (Auto) 15 % (10-50); Mean Corpuscular HGB Conc 33.8 g/dl (31.0-37.0); Mean Corpuscular Hemoglobin 29.5 pg (25.0-35.0); Mean Corpuscular Volume 87 fL (80-100); Monocytes # (Auto) 0.9 Thou/mm3 (0.0-0.8); Monocytes % (Auto) 7 % (0-12); Neutrophils # (Auto) 9.7 Thou/mm3 (1.8-7.7); Neutrophils % (Auto) 77 % (37-80); Nucleated Red Blood Cell % 0 /100 WBC (0); Platelet Count 228 Thou/mm3 (140-440); RDW Standard Deviation 41.9 fL (36.4-46.3); Red Blood Count 3.97 Miln/mm3 (4.00-5.20); White Blood Count 12.7 Thou/mm3 (3.6-11.0)
[2025-03-07] MEDS: ACETAMINOPHEN 325 MG TABLET 650 MG PO (15:53)
[2025-03-07 18:38] LABS: Syphilis Nonreactive (Nonreactive)
[2025-03-07] MEDS: DOCUSATE SOD 100 MG CAPSULE PO (20:02)
[2025-03-08 00:10] VITALS: BP 128/78; PULSE 80; RESP 19; TEMP 36.7; O2SAT 95
[2025-03-08 04:00] VITALS: BP 117/71; PULSE 76; RESP 18; TEMP 36.4; O2SAT 97
--- NOTE | 2025-03-08 07:57 | PD.LDPPPRG ---
Subjective Subjective Interval history: No complaints of pain. No dizziness. Bonding breast-feeding Exam Vital Signs Temp Pulse Resp BP Pulse Ox O2 Del Method 97.6 F 76 18 117/71 97 Room Air 03/08/25 04:00 03/08/25 04:00 03/08/25 04:00 03/08/25 04:00 03/08/25 04:00 03/08/25 04:00 Narrative Exam Vital signs stable afebrile. Pressure soft. Fundus firm below the umbilicus. Perineum intact no swelling. Small lochia. Uterus well involuted. Negative Homans' sign. 2+ DTR Objective Labs 03/07/25 14:55 Labs: Laboratory Results - last 24 hr 03/07/25 03/07/25 00:50 14:55 WBC 12.7 H RBC 3.97 L Hgb 11.7 L Hct 34.6 L MCV 87 MCH 29.5 MCHC 33.8 RDW Std Deviation 41.9 Plt Count 228 Neut % (Auto) 77 Lymph % (Auto) 15 Sequoyah % (Auto) 7 Eos % (Auto) 1 Baso % (Auto) 0 Neut # (Auto) 9.7 H Lymph # (Auto) 1.9 Sequoyah # (Auto) 0.9 H Eos # (Auto) 0.1 Baso # (Auto) 0.0 Immature Gran # (Auto) 0.07 H Absolute Nucleated RBC 0.00 Immature Gran % 1 H Nucleated RBC % 0 Syphilis Serology Nonreactive Assessment & Plan Assessment Comment Assessment comment: 24 hr pp Plan Comment Plan Comment: Discharge home with baby. Continue vitamins and iron. Tylenol or ibuprofen for pain. Discussed danger signs and symptoms and ER precautions. Increase fluids and rest. Return in 3 weeks visit. Discussed signs symptoms of infection Time Spent With Patient Time: Total time spent is greater than 50% in coordination of care (as documented) at patient's floor/unit and/or counseling patient:
--- NOTE | 2025-03-08 07:59 | PD.LDDS ---
DS: Providers Provider Date of admission: 03/07/25 00:32 Primary care physician: Physician No Primary/Family Admitting Provider: Jackeline Winston CNM Attending Provider on Admission: Jackeline Winston CNM Consults: 03/07/25 08:52 Referral Routine Comment: Attending Provider on DC: Jackeline Winston CNM Discharging Provider: Jackeline Winston CNM DS: Diagnosis Problem List Completed Was Problem List Reviewed/Reconciled?: Yes Summary/Hosp Course Brief History: This is a 35-year-old 4 para 3 admit to labor and delivery with complaints of contractions since 11 PM. Denies leaking or bleeding. Reports good movement. Patient been followed both at [facility] for care and then she transferred to [facility] medical clinic OB. Last. Was June 11, 2024. Estimated due date March 18, 2025. First ultrasound was in August patient was 13 weeks and that confirmed dates and then she has had several other anatomy scans that showed normal growth and normal anatomy. Patient also had a [facility] appointment as well. Denies social habits. Denies surgery. Denies chronic illness. First visit at [facility] was at 8 weeks. Patient is A+, antibody screen negative, RPR nonreactive, rubella immune, hepatitis B negative, hep C negative, HIV negative, GC and Chlamydia were negative. GBS negative. Third trimester labs negative. Peripartum Data Delivery Method: Normal Vaginal Delivery Episiotomy Description: None (no laceration) Laceration Description: no complications: none Time Spent with Patient Time attestation: Total time spent providing and/or coordinating discharge services: Exam Vital Signs Temp Pulse Resp BP Pulse Ox O2 Del Method 97.6 F 76 18 117/71 97 Room Air 03/08/25 04:00 03/08/25 04:00 03/08/25 04:00 03/08/25 04:00 03/08/25 04:00 03/08/25 04:00 Discharge Plan Plan Patient Disposition: HOME (Self Care) Patient condition on transfer: Stable Prescriptions/Referrals Prescriptions/Med Rec: No Action PNV cmb#95-ferrous fumarate-FA [] 28 mg iron- 800 mcg tablet 1 tab PO QDAY Referrals: No Primary/Family,Physician [Primary Care Provider] - Patient/Caregiver Discharge Instructions Meds to Beds: No Discharge Activity: resume usual activities Print Language: Botswanan Activity Restrictions/Additional Instructions: Discharge home with baby. Continue vitamins and iron. Tylenol ibuprofen for pain. Discussed danger signs and symptoms and ER precautions. Discussed signs symptoms of infection. Hydrate. Return in 3 weeks visit Stand Alone Forms: Lisa Award Info., Patient Portal Info Letter Discharge Order Discharge Orders: Discharge (Routine); Ordered 03/08/25 Ordered By: Jackeline Winston Planned Discharge Date 03/08/25
[2025-03-08 08:25] VITALS: BP 114/70; PULSE 86; RESP 18; TEMP 36.1; O2SAT 97
[2025-03-08] MEDS: DOCUSATE SOD 100 MG CAPSULE PO (09:03)
== END 2025-03-08 13:56 | disposition home or self-care (01) | DRG 560 ==
LOC: S4SX 09:17 → S4NX 09:51
PROVIDERS: Admitting Provider Advanced Practice Midwife; Visit Provider Advanced Practice Midwife
DX: O80 Encounter for full-term uncomplicated delivery (principal); Z37.0 Single live birth; Z3A.38 38 weeks gestation of pregnancy
CPT/HCPCS: 36415; 59025; 85025; 86780; 86850; 86900; 86901; J2590; J2795; J3010; J3490; J7120; S0191; A9270

== ENCOUNTER 2025-04-12 10:29 | Outpatient (AMB) | payer MEDICAID, SELFPAY ==
--- NOTE | 2025-04-12 10:41 | AMBOBPPN_ITS ---
Vital Signs 04/12/25 10:42 Height 1.55 m Height Method Stated Weight 83.915 kg Weight Measurement Method Standing Scale BMI 34.9 BP 113/71 Blood Pressure Source Automatic Cuff Blood Pressure Location Right Upper Arm Position Sitting Respiration 17 Pulse 81 Pulse Source Monitor Temp 97.7 F Temp Source Temporal Artery Scan Pulse Oximetry (%) 96 Oxygen Delivery Method Room Air Allergies/Home Meds Allergies & Medications Allergies No Known Drug Allergies Allergy (Unknown, Verified 04/12/25 10:43) Medication Reconciliation vit no.95-ferrous fumarate 28 mg-folic acid 800 mcg tablet () 1 tab PO QDAY 03/07/25 [History Confirmed 04/12/25] Intake Visit Data Collection New Patient or Established: Established Patient (seen at [facility] within 3 years) Reason for Visit:: Seen by Clinical Staff ONLY (RN/MA): No Ballet Professor Required: No Do You Feel Safe at Home: Yes Authorities Contacted: N/A PCP or OBGYN visit in last 3 months: Yes Date of Last PCP or OBGYN visit: 03/08/25 Hx Now: Yes Are you currently on any form of Control: No Pain Present Currently: No Pain Scale Used: Vazquez-Kathleen/Numerical Pain scale:: 0 Smoking Status 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 Status: 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: Past Medical History Past Medical History: No Hx Neurological Disorders, No Hx Cardiac Disorders, No Hx Cancer, No Hx Blood Disorders, No Hx Anemia, No Hx Gastrointestinal Disorders, No Hx Renal Disease, No Hx Diabetes Mellitus Type 1 and No Hx Diabetes Mellitus Type 2 Questionnaires Covid-19 Vaccine Questionnaire Has patient been vacinated for Covid-19 Have you been vacinated for Covid-19: No Social History Living Situation History Marital Status: Lives With: Family Housing: House Tobacco History Smoking Status: 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 Second Hand Smoke Exposure: No Alcohol History Alcohol Intake: Never Domestic Abuse History Do You Feel Safe at Home: Yes EPDS - PP Depression Screening [facility] Depression Screen I have been able to laugh and see the funny side of things: (0) As much as I always could I have looked forward with enjoyment to things: (0) As much as I ever did I have blamed myself unnecessarily when things went wrong: (0) No, never I have been anxious or worried for no good reason: (0) No, not at all I have felt scared or panicky for no very good reason: (0) No, not at all Things have been getting on top of me: (0) No, I have been coping as well as ever I have been so unhappy that I have had difficulty sleeping: (0) No, not at all I have felt sad or miserable: (0) No, not at all I have been so unhappy that I have been crying: (0) No, never The thought of harming myself has occurred to me: (0) Never EPDS completed yes Care OB Visit Log OB Flowsheet Initial Weight: Not Recorded Date -?-?-?-?-?-?-?-?-?-?-?-?- EGA Weight BP Alb Glu CTX Pres Fundal ht FHR Mov Dilation Station Effacement Hx Notes Visit Note 01/02/25 -?-?-?-?-?-?-?-?-?-?-?-?- 29w 2d 87.997 kg 107/64 absent 29 135 ac tive 34-year-old multipara for OB check and OB transfer of care. Patient reports good movement. Denies cramping or signs of labor. Follow-up maternal- medicine is January 16, 2025. Tdap vaccine IM will be given today. And follow-up in 3 weeks. 02/06/25 -?-?-?-?-?-?-?-?-?-?-?-?- 34w 2d 86.409 kg 107/66 absent cephalic 34 143 active fetus active. complains of sciatic pain and leg cramps, feactive,no PTL complaints. comfort measure for leg cramps and sciatic pain, continue PNV, fkc bid, GBS NV. RTC 1 week 02/13/25 -?-?-?-?-?-?-?-?-?-?-?-?- 35w 2d 88.621 kg 116/70 absent cephalic 156 active fetus active, no complaints of labor. denies leaking or bleeding, fetus active, discuss FKC, review quinton precaution, GBS today. rtc 1 week 02/20/25 -?-?-?-?-?-?-?-?-?-?-?-?- 36w 2d 89.074 kg 106/70 occasional cephalic 36 157 active denies leaking,bleeding. reports good FM fetus active, labor precaution, fkc bid. hydrate, rtc 1 week 02/27/25 -?-?-?-?-?-?-?-?-?-?-?-?- 37w 2d 90.378 kg 116/69 occasional cephalic 37 156 active fetus active. increased pressure, no LOF or bleeding, no other complaints discuss labor precaution, reviewed FKC bid, discuss danger precaution, continue PNV, Hydrate. rtc 1 week obc ROX Calculator Estimated Delivery Date Method Current WG Current Estimate 03/18/25 LMP (Certain) 43w 4d Other Estimates 03/23/25 Ultrasound #1 42w 6d Notes Visit Date: 02/27/25 Last Updated by: Jackeline Winston CNM GBS- Visit Date: 02/06/25 Last Updated by: Jackeline Winston CNM 34 yo , lmp 06/11/24. EDC 03/18/25. A+,abs-,rpr;;nr, rub imm, hbsag-,hiv-,GC/CT-, A1c:5.4, 1 hr gtt wnl. EFX+W 71%, biggest babe:9lb HPI Interval History: 35-year-old 4 para 3 for 6-week . Patient had vaginal delivery March 07, 2025. A baby boy weighing 7 pounds 14 ounces. Patient is pumping. Siblings adjusting. Father the baby is involved, patient reports that she is happy. No history of depression. 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 Both breasts soft no mastitis. Abdomen soft nontender. Uterus involuted 3 below umbilicus. Perineum intact. No lochia. Negative Homans' sign. 2+ DTRs General Limitations: no limitations General Appearance: alert, in no apparent distress, comfortable, cooperative, healthy appearing, well developed and well groomed Head Head exam: atraumatic, normocephalic and normal inspection Resp Respiratory exam: Present normal lung sounds bilaterally Card Cardiovascular exam: Present regular rate, normal rhythm and normal heart sounds Abdominal Abdominal exam: Present soft and normal bowel sounds Psych Psychiatric exam: Present normal affect and normal mood Office Procedures OB Clinic LOC & Office Proc's Nursing/Assessment Patient Status: Established Patient OB Clinic Nursing Assessment: Medication Reconciliation, Update PMH in EMR and Vital Signs OB Clinic Coordination of Care: Complex Care and Chronic Disease 1-5, Consent,r ecords obtained, informed consent, Education Simp Pt/Fam and Staff clarify orders Established Patient Charge Established Patient Point Assignment: 85 Post Follow-up Visit Post Follow up Visit: Yes Assessment & Plan Diagnosis / Problem List (1) Routine Follow-Up: (2) 6 weeks follow-up: Status: Acute Plan Discussed contraception with patient. Discussed condoms and compliance. Discussed effectiveness. I reviewed latching and breast-feeding positions with patient. Continue vitamins. Increase fluids. Okay to resume exercise starting gradually. And discussed diet. Return in 2 years for Pap or as needed for change in control method Care Reviewed delivery summary and any complications: Yes Uterus involuted to: 3 below umb Perineal / incision healing noted: Yes Screened for depression: Yes Depression counseling provided: No Discussed family planning & contraception: Yes Contraception planned: condom Counseling on safe resumption of sexual activity: Yes Counseling on gradual excercise: Yes Discussed and concerns (describe), provided support: Yes Referred to food specialist: No Counseled on good nutrition, hydration, and self care: Yes Reviewed vaccine status: No Chronic & current problems reconciled on problem list: Yes care discussed; questions answered: feeding Follow up: routine/prn Additional counseling & anticipatory guidance provided: rtc 2 year or as needed for pap (FP) Tobacco Smoking Status: 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
[2025-04-12 10:42] VITALS: BP 113/71; PULSE 81; RESP 17; TEMP 36.5; O2SAT 96; BMI 34.9
== END 2025-04-12 10:53 | disposition home or self-care (01) ==
LOC: HODSOBC 10:29
PROVIDERS: Supervising Provider Advanced Practice Midwife; Visit Provider Advanced Practice Midwife
DX: Z39.2 Encounter for routine postpartum follow-up (principal); Z39.1 Encounter for care and examination of lactating mother